=== PATIENT | female | born 1960 | race African-American/Black ===

== ENCOUNTER 2017-03-28 10:02 | Emergency (ER) | END 2017-03-28 13:13 | disposition home or self-care (01) ==

== ENCOUNTER 2017-11-04 19:36 | Emergency (ER) | END 2017-11-05 03:18 | disposition home or self-care (01) ==

== ENCOUNTER 2017-12-04 05:31 | Emergency (ER) | END 2017-12-04 09:24 | disposition home or self-care (01) ==

== ENCOUNTER 2017-12-25 12:19 | Emergency (ER) | END 2017-12-25 17:02 | disposition home or self-care (01) ==